=== PATIENT | female | born 1990 | race African-American/Black ===

== ENCOUNTER 2024-04-03 20:45 | Emergency (ER) | payer OTHER ==
[2024-04-03 20:52] VITALS: BP 115/83; PULSE 103; RESP 20; TEMP 98.6; BMI 40.7
[2024-04-03] MEDS ORDERED: ONDANSETRON *ODT* 4 MG TABLET ONE (21:35)
[2024-04-03] MEDS: ACETAMINOPHEN 325 MG TABLET (FP) PO ONE (21:44)
[2024-04-03] MEDS: ONDANSETRON 4 MG TABLET PO ONE (21:45)
[2024-04-03] MEDS: LACTATED RINGERS SOLUTION 1000 ML INFUS.BAG IV ONE (21:46)
[2024-04-03] MEDS: ACETAMINOPHEN 1000 MG/100 ML BAG IVPB ONE (21:46)
== END 2024-04-03 23:03 | disposition home or self-care (01) ==
LOC: JER 20:45
DX: R50.9 Fever, unspecified (principal); R53.81 Other malaise; R53.1 Weakness; R63.0 Anorexia; J10.1 Influenza due to other identified influenza virus with other respiratory manifestations; Z20.822 Contact with and (suspected) exposure to COVID-19
CPT/HCPCS: 0241U-QW; 99283-25